=== PATIENT | female | born 1985 | race Caucasian/White ===

== ENCOUNTER 2016-11-11 12:00 | Outpatient (RCR) | payer MEDICAID, SELFPAY | END 2016-11-18 | disposition home or self-care (01) | LOC: M OUTALCOH 12:00 | PROVIDERS: ATTEND Psychiatry & Neurology Psychiatry | DX: F14.20 Cocaine dependence, uncomplicated (principal) ==

== ENCOUNTER → 2016-11-14 | Outpatient (REF) | payer MEDICAID | END | disposition home or self-care (01) | LOC: M SFHCWAGY 12:11 | PROVIDERS: ATTEND Nurse Practitioner Family | DX: Z12.4 Encounter for screening for malignant neoplasm of cervix (principal) ==

== ENCOUNTER → 2016-11-25 | Outpatient (REF) | payer OTHER ==
[2016-11-25 12:17] LABS: MEAN CORPUSCULAR HEMOGLOBIN 29.4 pg (27.0-33.0); MEAN CORPUSCULAR HGB CONC 33.7 g/dl (32.0-36.5); MEAN CORPUSCULAR VOLUME 87.2 fl (80.0-96.0); RED CELL DISTRIBUTION WIDTH 13.3 % (11.5-14.5); WHITE BLOOD COUNT 7.5 K/mm3 (4.0-10.0)
[2016-11-25 12:37] LABS: ALBUMIN 3.4 GM/DL (3.2-5.2); ALBUMIN/GLOBULIN RATIO 0.83 (1.00-1.93); ALKALINE PHOSPHATASE 101 U/L (45-117); ALT/SGPT 37 U/L (12-78); ANION GAP 12 MEQ/L (8-16); AST/SGOT 15 U/L (15-37); BILIRUBIN,TOTAL 0.3 MG/DL (0.2-1.0); BLOOD UREA NITROGEN 12 MG/DL (7-18); CALCIUM LEVEL 8.6 MG/DL (8.5-10.1); CARBON DIOXIDE LEVEL 25 MEQ/L (21-32); CHLORIDE LEVEL 104 MEQ/L (98-107); CHOLESTEROL LEVEL 202 MG/DL (<200); CREATININE FOR GFR 0.58 MG/DL (0.55-1.02); GLOMERULAR FILTRATION RATE > 60.0 (>60); GLUCOSE, FASTING 96 MG/DL (70-105); POTASSIUM SERUM 4.3 MEQ/L (3.5-5.1); SODIUM LEVEL 141 MEQ/L (136-145); TOTAL PROTEIN 7.5 GM/DL (6.4-8.2); TRIGLYCERIDES LEVEL 122 MG/DL (<150)
== END | disposition home or self-care (01) ==
LOC: M SFHCPLAZ 08:43
DX: R53.83 Other fatigue (principal); E28.2 Polycystic ovarian syndrome; E78.5 Hyperlipidemia, unspecified; E55.9 Vitamin D deficiency, unspecified

== ENCOUNTER → 2016-12-16 | Outpatient (RCR) | payer MEDICAID | LOC: M OUTALCOH 11-21 13:40 | PROVIDERS: ATTEND Psychiatry & Neurology Psychiatry | DX: F14.20 Cocaine dependence, uncomplicated (principal) ==

== ENCOUNTER → 2017-02-25 | Outpatient (CLI) | payer MEDICAID | LOC: M OUTALCOH 12:41 | PROVIDERS: ATTEND Psychiatry & Neurology Psychiatry | DX: F14.20 Cocaine dependence, uncomplicated (principal) ==

== ENCOUNTER 2017-03-30 07:38 | Emergency (ER) | payer MEDICAID, OTHER ==
[~2017-03-30] VITALS: Ht 170.2 cm; Wt 113.4 kg
[2017-03-30] MEDS ORDERED: OMEP20CA3 PO (07:54)
[2017-03-30] MEDS ORDERED: ALEV220T26 PO (07:54)
[2017-03-30] MEDS ORDERED: METF1000 PO (07:54)
[2017-03-30] MEDS ORDERED: FLUO20CA9 PO (07:54)
[2017-03-30] MEDS ORDERED: NORCO, ANEXSIA 5/325MG TABLET (HYDROcodone/ACETAMINOPHEN) PO ONE (08:15)
[2017-03-30 08:53] VITALS: BP 160/100
[2017-03-30] MEDS ORDERED: AUGM875T27 PO (09:03)
[2017-03-30] MEDS ORDERED: IBUP600T26 PO (09:04)
[2017-03-30] MEDS ORDERED: NORCOTAB PO (09:04)
== END 2017-03-30 09:12 | disposition home or self-care (01) ==
LOC: M ED 08:21
DX: K02.9 Dental caries, unspecified (principal); R03.0 Elevated blood-pressure reading, without diagnosis of hypertension; F41.9 Anxiety disorder, unspecified; F32.9 Major depressive disorder, single episode, unspecified; F17.200 Nicotine dependence, unspecified, uncomplicated; Z79.899 Other long term (current) drug therapy

== ENCOUNTER 2017-06-02 13:29 | Emergency (ER) | payer OTHER ==
[~2017-06-02] VITALS: Ht 170.2 cm; Wt 113.6 kg
[~2017-06-02 13:29] MED LIST: ALEV220T26 PO; AUGM875T28 PO; FLUO20CA19 PO; IBUP-1022 PO; METF10004 PO; NORCOTAB PO; OMEP20CA3 PO
[2017-06-02] MEDS ORDERED: ZANT300T PO (14:33)
[2017-06-02] MEDS ORDERED: IBUP-1022 PO (14:33)
[2017-06-02] MEDS ORDERED: AUGM875T28 PO (14:33)
[2017-06-02 14:46] VITALS: BP 155/96
== END 2017-06-02 14:47 | disposition home or self-care (01) ==
LOC: M ED 13:29
DX: H66.41 Suppurative otitis media, unspecified, right ear (principal); F17.210 Nicotine dependence, cigarettes, uncomplicated

== ENCOUNTER → 2017-06-10 | Outpatient (CLI) | payer MEDICAID ==
[~2017-06-10] MED LIST changes: +ZANT300T PO
== END ==
LOC: M OUTALCOH 12:52
PROVIDERS: ATTEND Psychiatry & Neurology Psychiatry
DX: Z13.9 Encounter for screening, unspecified (principal); F14.20 Cocaine dependence, uncomplicated

== ENCOUNTER 2017-07-15 08:45 | Outpatient (RCR) | payer MEDICAID | END 2017-07-18 | LOC: M OUTALCOH 08:45 | PROVIDERS: ATTEND Psychiatry & Neurology Psychiatry | DX: F10.20 Alcohol dependence, uncomplicated (principal); F14.20 Cocaine dependence, uncomplicated ==

== ENCOUNTER 2017-12-12 10:56 | Emergency (ER) | payer OTHER, MEDICAID | END 2017-12-12 11:51 | disposition home or self-care (01) | LOC: M ED 10:56 | DX: H66.001 Acute suppurative otitis media without spontaneous rupture of ear drum, right ear (principal); R05 Cough; K21.9 Gastro-esophageal reflux disease without esophagitis; F41.9 Anxiety disorder, unspecified; F32.9 Major depressive disorder, single episode, unspecified; E28.2 Polycystic ovarian syndrome; F17.200 Nicotine dependence, unspecified, uncomplicated | CPT/HCPCS: 99283 ==

== ENCOUNTER → 2017-12-31 | Outpatient (REF) | payer OTHER ==
[2017-12-31 14:33] LABS: INFLUENZA A AMPLIFICATION NEGATIVE (NEGATIVE); INFLUENZA B AMPLIFICATION NEGATIVE (NEGATIVE)
== END ==
LOC: M LAB REF 13:01
DX: J11.1 Influenza due to unidentified influenza virus with other respiratory manifestations (principal)

== ENCOUNTER 2018-02-13 11:59 | Emergency (ER) | payer OTHER | END 2018-02-13 12:56 | disposition home or self-care (01) | LOC: M ED 11:59 | DX: H66.001 Acute suppurative otitis media without spontaneous rupture of ear drum, right ear (principal) | CPT/HCPCS: 99282 ==

== ENCOUNTER → 2018-07-05 | Outpatient (REF) | payer OTHER ==
[2018-07-05 17:47] LABS: ESTIMATED AVERAGE GLUCOSE 108 MG/DL (60-110); HEMOGLOBIN A1c 5.4 %
[2018-07-05 18:31] LABS: TOTAL 25(OH) VITAMIN D 21.2 NG/ML (30.0-100.0)
== END ==
LOC: M SFHCPLAZ 15:31
DX: Z13.1 Encounter for screening for diabetes mellitus (principal); Z13.21 Encounter for screening for nutritional disorder

== ENCOUNTER → 2019-12-08 | Outpatient (REF) | payer OTHER ==
[~2019-12-08] MED LIST changes: +BENZ200C70 PO; -FLUO20CA19 PO; +FLUO20CA22 PO; +HYDR-3715 PO; +LISI10TA4; -NORCOTAB PO; +OMEP-221; +OMEP1CAP73 PO; -OMEP20CA3 PO; +PERC5TAB12 PO; -ZANT300T PO; +ZANT300T9 PO
[2019-12-08 22:41] LABS: INFLUENZA A AMPLIFICATION NEGATIVE (NEGATIVE); INFLUENZA B AMPLIFICATION NEGATIVE (NEGATIVE)
== END ==
LOC: M LAB REF 21:37
PROVIDERS: ATTEND Physician Assistant
DX: J11.1 Influenza due to unidentified influenza virus with other respiratory manifestations (principal)

== ENCOUNTER 2020-01-10 08:05 | Day surgery (SDC) | payer OTHER ==
[~2020-01-10] VITALS: Ht 170.2 cm; Wt 128.4 kg
[~2020-01-10 08:05] MED LIST changes: +IBUP200C27 PO; +LIDOCAINE 2% INJ 100 MG/5 ML SDV (FOR ANES.) As Ordered ONE; -LISI10TA4; +LISI10TA4 PO; -OMEP-221; +OMEP-221 PO; +propofoL 200 MG/20 ML VIAL As Ordered ONE
[2020-01-10] MEDS ORDERED: fentaNYL 100 MCG/2 ML INJECTION (J3010) As Ordered ONE (09:27)
[2020-01-10] MEDS ORDERED: propofoL 200 MG/20 ML VIAL As Ordered ONE (09:27)
--- NOTE | 2020-01-10 10:14 | ROOR ---
Patient Name: Loretta Jaramillo Procedure Date: 01/10/2020 9:08 AM Date of : 1985 Age: 34 Room: [facility] Gender: Female Note Status: Finalized Procedure: Upper GI endoscopy Indications: Suspected gastro-esophageal reflux disease Providers: Oscar Polk MD Referring MD: Nabil VAZQUEZ MD Requesting Provider: Medicines: Monitored Anesthesia Care Complications: No immediate complications. Procedure: Pre-Anesthesia Assessment: - Prior to the procedure, a History and Physical was performed, and patient medications and allergies were reviewed. The patient is competent. The risks and benefits of the procedure and the sedation options and risks were discussed with the patient. All questions were answered and informed consent was obtained. Patient identification and proposed procedure were verified by the physician, the nurse and the anesthesiologist in the procedure room. Mental Status Examination: alert and oriented. Airway Examination: normal oropharyngeal airway and neck mobility. Respiratory Examination: clear to auscultation. CV Examination: normal. Prophylactic Antibiotics: The patient does not require prophylactic antibiotics. Prior Anticoagulants: The patient has taken no previous anticoagulant or antiplatelet agents. ASA Grade Assessment: II - A patient with mild systemic disease. After reviewing the risks and benefits, the patient was deemed in satisfactory condition to undergo the procedure. The anesthesia plan was to use monitored anesthesia care (MAC). Immediately prior to administration of medications, the patient was re-assessed for adequacy to receive sedatives. The heart rate, respiratory rate, oxygen saturations, blood pressure, adequacy of pulmonary ventilation, and response to care were monitored throughout the procedure. The physical status of the patient was re-assessed after the procedure. The Endoscope was introduced through the mouth, and advanced to the second part of duodenum. The upper GI endoscopy was accomplished without difficulty. The patient tolerated the procedure well. Findings: LA Grade A (one or more mucosal breaks less than 5 mm, not extending between tops of 2 mucosal folds) esophagitis with no bleeding was found in the distal esophagus. Biopsies were taken with a cold forceps for histology. Verification of patient identification for the specimen was done by the physician and nurse using the patient's name, date and medical record number. Estimated blood loss was minimal. Scattered moderate inflammation characterized by erythema, friability and granularity was found in the gastric body and in the gastric antrum. Biopsies were taken with a cold forceps for Helicobacter pylori testing. The duodenal bulb and second portion of the duodenum were normal. Impression: - LA Grade A reflux esophagitis. Rule out Ruiz's esophagus. Biopsied. - Gastritis. Biopsied. - Normal duodenal bulb and second portion of the duodenum. Recommendation: - Patient has a contact number available for emergencies. The signs and symptoms of potential delayed complications were discussed with the patient. Return to normal activities tomorrow. Written discharge instructions were provided to the patient. - Resume previous diet. - Continue present medications. - Follow an antireflux regimen. - Await pathology results. - Telephone GI clinic for pathology results in 2 weeks. - Return to primary care physician. Oscar Polk MD Oscar Polk MD 01/10/2020 10:14:37 AM Electronically signed by Oscar Polk MD Number of Addenda: 0 Note Initiated On: 01/10/2020 9:08 AM Estimated Blood Loss: Estimated blood loss was minimal.
[2020-01-10 10:15] VITALS: BP 125/86
[2020-01-12] MEDS ORDERED: NS 1,000 ML IV ONE (06:00)
== END 2020-01-10 10:40 | disposition home or self-care (01) ==
LOC: M OPP 08:05
PROVIDERS: ATTEND Internal Medicine Gastroenterology
DX: K21.0 Gastro-esophageal reflux disease with esophagitis (principal); K29.70 Gastritis, unspecified, without bleeding; I10 Essential (primary) hypertension; E78.5 Hyperlipidemia, unspecified; R06.02 Shortness of breath; F32.9 Major depressive disorder, single episode, unspecified; F41.9 Anxiety disorder, unspecified; F17.210 Nicotine dependence, cigarettes, uncomplicated; Z79.899 Other long term (current) drug therapy
CPT/HCPCS: 43239; 88305; J3010

== ENCOUNTER 2020-07-24 00:23 | Emergency (ER) | payer OTHER ==
[~2020-07-24] VITALS: Ht 170.2 cm; Wt 133.9 kg
[~2020-07-24 00:23] MED LIST changes: -LIDOCAINE 2% INJ 100 MG/5 ML SDV (FOR ANES.) As Ordered ONE; -propofoL 200 MG/20 ML VIAL As Ordered ONE
[2020-07-24 01:15] LABS: BASO # 0.1 10^3/uL (0.0-0.2); BASO % 0.6 % (0.0-1.0); EOS # 0.5 10^3/uL (0.0-0.5); EOS % 4.2 % (0.0-3.0); HEMOGLOBIN 13.8 g/dl (12.0-15.5); LYMPH # 3.7 10^3/uL (1.5-5.0); LYMPH % 32.4 % (24.0-44.0); MEAN CORPUSCULAR HEMOGLOBIN 28.8 pg (27.0-33.0); MEAN CORPUSCULAR HGB CONC 32.1 g/dl (32.0-36.5); MEAN CORPUSCULAR VOLUME 89.6 fl (80.0-96.0); MONO # 0.9 10^3/uL (0.0-0.8); MONO % 7.6 % (0.0-5.0); NEUTROPHILS # 6.3 10^3/uL (1.5-8.5); NEUTROPHILS % 54.9 % (36.0-66.0); PLATELET COUNT, AUTOMATED 304 10^3/uL (150-450); WHITE BLOOD COUNT 11.5 10^3/uL (4.0-10.0)
[2020-07-24 01:50] LABS: HCG, SERUM QUALITATIVE NEGATIVE (NEGATIVE)
[2020-07-24 01:57] LABS: ALBUMIN 3.1 GM/DL (3.2-5.2); ALT/SGPT 97 U/L (12-78); BILIRUBIN,DIRECT < 0.1 MG/DL (0.0-0.2); BILIRUBIN,TOTAL 0.2 MG/DL (0.2-1.0); BLOOD UREA NITROGEN 13 MG/DL (7-18); CALCIUM LEVEL 9.2 MG/DL (8.5-10.1); CARBON DIOXIDE LEVEL 28 MEQ/L (21-32); CHLORIDE LEVEL 107 MEQ/L (98-107); CREATININE FOR GFR 0.63 MG/DL (0.55-1.30); GLOMERULAR FILTRATION RATE > 60.0 (>60); GLUCOSE, FASTING 229 MG/DL (70-100); LIPASE 146 U/L (73-393); POTASSIUM SERUM 4.3 MEQ/L (3.5-5.1); SODIUM LEVEL 139 MEQ/L (136-145); TOTAL PROTEIN 7.4 GM/DL (6.4-8.2)
[2020-07-24] MEDS ORDERED: KETOROLAC 30 MG/ML 1ML VIAL IV ONE (03:15)
[2020-07-24] MEDS ORDERED: ONDANSETRON 4MG/2ML VIAL IV ONE (03:15)
[2020-07-24] MEDS ORDERED: NS 1,000 ML IV ONE (03:15)
[2020-07-24] MEDS ORDERED: GI COCKTAIL 50ML BTL(HYOSCYAMINE/MAALOX/LIDOCAINE VISCOUS)(1:3:1) PO ONE (03:15)
--- NOTE | 2020-07-24 04:04 | REPVR ---
PROCEDURE INFORMATION: Exam: US Abdomen, Limited; Right Upper Quadrant Exam date and time: 07/24/20 (3:27am) Age: 34 years old Clinical indication: Acute abdominal pain. RUQ pain. TECHNIQUE: Imaging protocol: US abdomen. Real time ultrasound with image documentation. Limited examination focused on the right upper quadrant. COMPARISON: US GALLBLADDER of 10/26/19 FINDINGS: The liver is visually normal in size, with fatty infiltration (echogenic texture). Partially contracted gallbladder, containing sludge. Thin gallbladder wall (2.1 mm thickness). No pericholecystic fluid is appreciated. The CBD is not dilated (4 mm diameter). The pancreas is obscured by bowel gas. The right kidney measures 12.4 cm in length, with no hydronephrosis appreciated. No ascites is seen. IMPRESSION: No acute pathology. No evidence of acute cholecystitis. The gallbladder is partially contracted. Gallbladder sludge is present. Thin gallbladder wall. No biliary obstruction. Electronically signed by: Sonia Alvarez On 07/24/2020 04:03:42 AM
[2020-07-24] MEDS ORDERED: LEVS0.124 SL (05:00)
[2020-07-24 05:51] VITALS: BP 169/98
== END 2020-07-24 05:53 | disposition home or self-care (01) ==
LOC: M ED 00:23
DX: K80.50 Calculus of bile duct without cholangitis or cholecystitis without obstruction (principal); R11.2 Nausea with vomiting, unspecified; Z87.19 Personal history of other diseases of the digestive system; F17.290 Nicotine dependence, other tobacco product, uncomplicated; Z79.899 Other long term (current) drug therapy
CPT/HCPCS: 76705; 80048; 80076; 81001; 83690; 84703; 85025; 96361; 96374; 96375; 99284; J1885; J2405

== ENCOUNTER → 2020-08-08 | Outpatient (CLI) | payer OTHER ==
[~2020-08-08] MED LIST changes: +LEVS0.124 SL
--- NOTE | 2020-08-08 14:30 | REPPI ---
INDICATION: M25.552 PAIN IN LEFT HIP COMPARISON: None. TECHNIQUE: AP and frog-lateral views of the left hip FINDINGS: Mild/early moderate arthritic changes include subtle increased sclerosis to the acetabulum with minimal joint space narrowing and marginal acetabular spurring. No further overt osteoarthritic changes are appreciated. No evidence for acute or healed injury. Surrounding soft tissues are normal. IMPRESSION: Mild arthritic degenerative changes. <Electronically signed by José Miguel Gr > 08/08/20 [id number]
== END ==
LOC: M PLAIMG 14:08
PROVIDERS: ATTEND Physician Assistant
DX: M16.12 Unilateral primary osteoarthritis, left hip (principal); M25.752 Osteophyte, left hip

== ENCOUNTER → 2020-08-23 | Outpatient (REF) | payer OTHER ==
[2020-08-23 17:29] LABS: BASO # 0.1 10^3/uL (0.0-0.2); BASO % 0.9 % (0.0-1.0); EOS # 0.3 10^3/uL (0.0-0.5); EOS % 3.2 % (0.0-3.0); HEMATOCRIT 47.2 % (36.0-47.0); HEMOGLOBIN 14.7 g/dl (12.0-15.5); LYMPH # 3.7 10^3/uL (1.5-5.0); LYMPH % 37.8 % (24.0-44.0); MEAN CORPUSCULAR HEMOGLOBIN 28.3 pg (27.0-33.0); MEAN CORPUSCULAR HGB CONC 31.1 g/dl (32.0-36.5); MEAN CORPUSCULAR VOLUME 90.9 fl (80.0-96.0); MONO # 0.8 10^3/uL (0.0-0.8); MONO % 8.1 % (0.0-5.0); NEUTROPHILS # 4.9 10^3/uL (1.5-8.5); NEUTROPHILS % 49.7 % (36.0-66.0); PLATELET COUNT, AUTOMATED 339 10^3/uL (150-450); RED BLOOD COUNT 5.19 10^6/uL (4.00-5.40); WHITE BLOOD COUNT 9.8 10^3/uL (4.0-10.0)
[2020-08-23 17:44] LABS: ALBUMIN 3.2 GM/DL (3.2-5.2); ALT/SGPT 61 U/L (12-78); BILIRUBIN,TOTAL 0.2 MG/DL (0.2-1.0); BLOOD UREA NITROGEN 14 MG/DL (7-18); CALCIUM LEVEL 9.5 MG/DL (8.5-10.1); CARBON DIOXIDE LEVEL 25 MEQ/L (21-32); CHLORIDE LEVEL 102 MEQ/L (98-107); CHOLESTEROL LEVEL 209 MG/DL (<200); CREATININE FOR GFR 0.66 MG/DL (0.55-1.30); GLOMERULAR FILTRATION RATE > 60.0 (>60); GLUCOSE, FASTING 146 MG/DL (70-100); HDL CHOLESTEROL 43 MG/DL (>40); LDL CHOLESTEROL 123 MG/DL (<100); NON-HDL-C 166 MG/DL; POTASSIUM SERUM 4.5 MEQ/L (3.5-5.1); SODIUM LEVEL 136 MEQ/L (136-145); TOTAL PROTEIN 7.6 GM/DL (6.4-8.2); TRIGLYCERIDES LEVEL 215 MG/DL (<150)
[2020-08-23 17:49] LABS: HEMOGLOBIN A1c 6.4 %
== END ==
LOC: M LAB REF 16:25
PROVIDERS: ATTEND Physician Assistant
DX: E28.2 Polycystic ovarian syndrome (principal); I10 Essential (primary) hypertension

== ENCOUNTER 2021-04-30 12:46 | Inpatient (IN) | payer OTHER ==
[~2021-04-30] VITALS: Ht 167.6 cm; Wt 135.1 kg
[~2021-04-30 12:46] MED LIST changes: -BP MED UNKNOWN; -CIPR-249 PO; -D31000TA2 PO; -FLAG500T PO; -IBUP-1720 PO; -LISI20TA33 PO; -MELO15TA28; -METF500T13; -MULTCHW12 PO; -NAPR-885; -NAPR500T6 PO; -OMEP-173 PO; +OMEP-221 PO; -OMEP40CA5 PO
[2021-04-30] MEDS ORDERED: NAPR-885 (13:09)
[2021-04-30 15:54] LABS: BASO # 0.1 10^3/uL (0.0-0.2); BASO % 0.6 % (0.0-1.0); EOS # 0.3 10^3/uL (0.0-0.5); EOS % 2.8 % (0.0-3.0); HEMATOCRIT 45.5 % (36.0-47.0); HEMOGLOBIN 14.7 g/dl (12.0-15.5); LYMPH # 2.9 10^3/uL (1.5-5.0); LYMPH % 29.2 % (24.0-44.0); MEAN CORPUSCULAR HEMOGLOBIN 28.7 pg (27.0-33.0); MEAN CORPUSCULAR HGB CONC 32.3 g/dl (32.0-36.5); MEAN CORPUSCULAR VOLUME 88.7 fl (80.0-96.0); MONO % 9.8 % (2.0-8.0); NEUTROPHILS # 5.7 10^3/uL (1.5-8.5); NEUTROPHILS % 57.3 % (36.0-66.0); PLATELET COUNT, AUTOMATED 310 10^3/uL (150-450); RED BLOOD COUNT 5.13 10^6/uL (4.00-5.40); WHITE BLOOD COUNT 9.9 10^3/uL (4.0-10.0)
[2021-04-30 16:41] LABS: ALBUMIN 3.5 GM/DL (3.2-5.2); ALT/SGPT 120 U/L (12-78); BILIRUBIN,DIRECT 0.2 MG/DL (0.0-0.2); BILIRUBIN,TOTAL 0.6 MG/DL (0.2-1.0); BLOOD UREA NITROGEN 15 MG/DL (7-18); CALCIUM LEVEL 9.1 MG/DL (8.5-10.1); CARBON DIOXIDE LEVEL 26 MEQ/L (21-32); CHLORIDE LEVEL 101 MEQ/L (98-107); GLOMERULAR FILTRATION RATE > 60.0 (>60); GLUCOSE, FASTING 84 MG/DL (70-100); LIPASE 100 U/L (73-393); SODIUM LEVEL 136 MEQ/L (136-145); TOTAL PROTEIN 8.3 GM/DL (6.4-8.2)
[2021-04-30] MEDS ORDERED: MORPHINE 4 MG/ML 1ML VIAL/SYRINGE (J2270) IV ONE (17:15)
[2021-04-30] MEDS ORDERED: PANTOPRAZOLE 40MG VIAL (C9113 PER 1) IV ONE (17:15)
--- NOTE | 2021-04-30 17:18 | ECGEPIP ---
[facility] - ED Test Date: 2021-04-30 Pat Name: ELY SAGE Department: Room: - Gender: Female Program Advocate: : 1985 Requested By: VASQUEZ Shepherd Order Number: [id number] Reading MD: Rancho Pathak Measurements Intervals Tyrone Rate: 90 P: 30 OH: 176 QRS: 30 QRSD: 94 T: 12 QT: 382 QTc: 467 Interpretive Statements Normal sinus rhythm POOR R WAVE PROGRESSION NONSPECIFIC T WAVE ABNORMALITY(S) SIMILAR TO 10/26/19 Electronically Signed on 04-30-2021 17:18:42 EDT by Rancho Pathak
[2021-04-30 17:29] LABS: HCG, SERUM QUALITATIVE NEGATIVE (NEGATIVE)
--- NOTE | 2021-04-30 18:47 | REP ---
INDICATION: ruq pain. COMPARISON: None. TECHNIQUE: Transabdominal right upper quadrant sonography. Scan quality is substantially inhibited by patient body habitus and bowel gas. FINDINGS: Scanning through the right upper quadrant of the abdomen demonstrates a normal sized, thin-walled gallbladder without evidence of stone or polyp. Common bile duct is normal measuring 0.4 cm in greatest diameter. No focal liver lesion is seen. Liver size is normal. The pancreas is obscured by abdominal gas. No right renal abnormality is seen. There is no evidence of ascites. The right kidney measures 11.9 x 5.9 x 5.6 cm. IMPRESSION: Negative, somewhat limited right upper quadrant sonography. <Electronically signed by Marcos Albarran > 04/30/21 [id number]
[2021-04-30] MEDS ORDERED: ISOVUE-370 76% 100ML VIAL As Ordered ONE (18:59)
--- NOTE | 2021-04-30 20:33 | REPVR ---
PROCEDURE INFORMATION: Exam: CT Abdomen And Pelvis With Contrast Exam date and time: 04/30/2021 7:02 PM Age: 35 years old Clinical indication: Other: Abd pain; Additional info: Abdominal pain TECHNIQUE: Imaging protocol: Computed tomography of the abdomen and pelvis with contrast. Radiation optimization: All CT scans at this facility use at least one of these dose optimization techniques: automated exposure control; mA and/or kV adjustment per patient size (includes targeted exams where dose is matched to clinical indication); or iterative reconstruction. Contrast material: ISOVUE 370; Contrast volume: 100 ml; Contrast route: INTRAVENOUS (IV); COMPARISON: CT ABD/PEL W/IV CONTRAST ONLY 10/26/2019 11:54 PM FINDINGS: Lungs: The lung bases are unremarkable. Liver: There is a diffuse decrease in hepatic parenchymal density, consistent with fatty infiltration. Gallbladder and bile ducts: The gallbladder is unremarkable. Pancreas: The pancreas is normal. Spleen: The spleen is unremarkable. Adrenal glands: The adrenal glands are unremarkable. Kidneys and ureters: The kidneys are unremarkable. Stomach and bowel: There is no evidence of intestinal obstruction although there is pericolonic inflammation series 201, images 130 -135, mesenteric side of the proximal sigmoid colon. No adjacent abscess is apparent although there could be an abscess within the colonic wall. Diverticulosis is most prominent in the descending and sigmoid colon. Appendix: No evidence of appendicitis. There is a probable clip along the margin of the cecum which may be due to appendectomy. Intraperitoneal space: Unremarkable. No free air. No significant fluid collection. Vasculature: The aorta is unremarkable. Lymph nodes: Unremarkable. No enlarged lymph nodes. Urinary bladder: The bladder is unremarkable. Reproductive: Unremarkable as visualized. Bones/joints: Unremarkable. No acute fracture. Soft tissues: Unremarkable. IMPRESSION: There is pericolonic inflammation proximal sigmoid colon most likely due to acute diverticulitis. No evidence of perforation other than 1 air bubble within the area of inflammation and no adjacent soft tissue abscess however there may be abscess within the colonic wall where there is a 2 cm low dense region series 202, image 50, series 203, image 93. Electronically signed by: Ivette Campos On 04/30/2021 20:33:32 PM
[2021-04-30] MEDS ORDERED: metroNIDAZOLE 500 MG in IV 1 EA IV ONE (21:00)
[2021-04-30] MEDS ORDERED: CIPROFLOXACIN 400 MG in IV 1 EA IV ONE (21:00)
[2021-04-30] MEDS ORDERED: NS 1,000 ML IV SCH (21:15)
[2021-04-30] MEDS ORDERED: OMEP-218 PO (21:21)
[2021-04-30] MEDS ORDERED: MULTCHW12 PO (21:21)
[2021-04-30] MEDS ORDERED: D31000TA2 PO (21:21)
[2021-04-30] MEDS ORDERED: IBUP-1720 PO (21:21)
[2021-04-30] MEDS ORDERED: LISI20TA33 PO (21:21)
[2021-04-30] MEDS ORDERED: NAPR500T6 PO (21:21)
[2021-04-30] MEDS ORDERED: ACETAMINOPHEN TAB 650MG DOSE (2X325MG) PO PRN (21:35)
--- NOTE | 2021-04-30 21:49 | REPVR ---
PROCEDURE INFORMATION: Exam: XR Chest Exam date and time: 04/30/2021 9:36 PM Age: 35 years old Clinical indication: Shortness of breath; Additional info: SOB TECHNIQUE: Imaging protocol: XR of the chest. Views: 2 views. COMPARISON: CR Chest, 2 view PA, Lat 10/26/2019 10:24 PM FINDINGS: Lungs: No focal lung consolidation. Pleural spaces: No pleural effusion or pneumothorax. Heart/Mediastinum: Unremarkable. No cardiomegaly. Diaphragm: There is elevation and/or eventration of the right hemidiaphragm which is a stable finding. Bones/joints: Unremarkable. IMPRESSION: No acute findings. Electronically signed by: Ivette Campos On 04/30/2021 21:48:59 PM
--- NOTE | 2021-04-30 21:52 | HPEPDOC ---
[facility] Medical History & Physical Date of Admission Apr 30, 2021 Date of Service: Apr 30, 2021 Attending Physician: MADLEYN PADILLA MD History and Physical CHIEF COMPLAINT: Abdominal pain, nausea and vomiting HISTORY OF PRESENT ILLNESS: Ms. Jaramillo is a 35-year-old female who presented to the ER this evening with complaints of 2 days of nausea, vomiting and worsening abdominal pain. She has a history of pancreatitis, etiology unclear, and originally thought that the pain might be a recurrence of the pancreatitis. She said it then started to feel different and she wondered if she had some constipation. She had 2 large bowel movements and then has had diarrhea since. She says she has been unable to keep anything down for 2 days. She denies any fever or chills. On initial evaluation. This evening she was noted to have INCREASED of her LFTs with AST of 58 and ALT of 120. Labs were otherwise unremarkable. Ultrasound of the gallbladder was somewhat limited but essentially negative. CT of the abdomen and pelvis showed pericolonic inflammation of the proximal sigmoid colon most likely due to acute diverticulitis. There was no evidence of perforation, but there was one air bubble within the area of inflammation. There is no adjacent soft tissue abscess. However, there might be an abscess within the colonic wall, where there is a 2 cm low dense region. ER provider discussed the case with gastroenterology who recommended that the patient be admitted and continued on Cipro and Flagyl. Commended the patient continue on IV fluids and a clear liquid diet. He stated that if the patient felt better in the morning, it would not be unreasonable for her to discharge home, but to continue clear liquids for 2-3 more days. Asked the general surgery be consult it. Dr. Kay was made aware of the patient's current condition and will evaluate in the morning. He did not feel there was any need for urgent surgical intervention. Patient does have a history of hypertension with blood pressure 160/90. She was afebrile with a pulse of 98. She was satting 98% on room air. PAST MEDICAL HISTORY: 1. Hypertension. 2. Hyperlipidemia. 3. Pancreatitis. 4. Anxiety. 5. Depression PAST SURGICAL HISTORY: 1. EGD. 2. Tonsil and adenoidectomy. 3. Ear surgery SOCIAL HISTORY: Tobacco use: Patient quit smoking about 1 year ago. ETOH: She does drink alcohol occasionally. Illicit drug use: She denies any illegal drugs. FAMILY HISTORY: Patient's mother is 62 years old and has a history of hypertension, anxiety and kidney stones. Her father is 68 with a history of coronary artery disease. REVIEW OF SYSTEMS: Complete 10 point review systems is negative except as noted above PHYSICAL EXAMINATION: Patient is seen in the ER, sitting on the side of the stretcher.. She is alert and oriented x 3. HEENT is WNL. Neck is supple. Lungs are clear to auscultation. Heart regular rate and rhythm without murmur. Abdomen is obese, soft, tender to palpation in the epigastrium with bowel sounds positive. Extremities with good ROM and strength equal bilaterally. No lower extremity edema. Pedal pulses are positive. Skin is warm and dry with no obvious rash or lesion. Neuro: grossly intact. Psych: She is pleasant and cooperative. ASSESSMENT AND PLAN: 1. Acute diverticulitis with possible colonic wall abscess. We'll continue the patient on Flagyl and Cipro. General surgery to evaluate in the morning. We'll continue the patient on clear liquid diet for the next 2-3 days. Will add antiemetic and pain medication for use as needed. Continue the patient on Protonix. Continue gentle IV fluids. 2. Transaminitis secondary to persistent nausea and vomiting. Plan as outlined above. Recheck labs in the morning. 3. Hypertension. Continue home lisinopril and monitor with routine vital signs. Will adjust medications as needed based on trends. 4. DVT prophylaxis. Lovenox. CODE STATUS: CODE STATUS was discussed with the patient desires to be considered full code. She states her cousin, Ade, would act as her surrogate if she were unable to make her own decisions. Patient is considered high risk for further deterioration including possible sepsis or septic shock. She is admitted for close observation and further evaluation and expected to remain at least one midnight. Vital Signs Vital Signs Date Time Temp Pulse Resp B/P (MAP) Pulse Ox O2 Delivery O2 Flow Rate FiO2 04/30/21 18:42 18 99 04/30/21 17:20 04/30/21 12:47 96.7 98 Room Air Laboratory Data Labs 24H Laboratory Tests 2 04/30/21 15:42: Immature Granulocyte % (Auto) 0.3, Neutrophils (%) (Auto) 57.3, Lymphocytes (%) (Auto) 29.2, Monocytes (%) (Auto) 9.8H, Eosinophils (%) (Auto) 2.8, Basophils (%) (Auto) 0.6, Neutrophils # (Auto) 5.7, Lymphocytes # (Auto) 2.9, Monocytes # (Auto) 1.0H, Eosinophils # (Auto) 0.3, Basophils # (Auto) 0.1, Nucleated Red Blood Cells % (auto) 0.0, Anion Gap 9, Glomerular Filtration Rate > 60.0, Calcium Level 9.1, Total Bilirubin 0.6, Direct Bilirubin 0.2, Aspartate Amino Transf (AST/SGOT) 58H, Alanine Aminotransferase (ALT/SGPT) 120H, Alkaline Phosphatase 106, Total Protein 8.3H, Albumin 3.5, Albumin/Globulin Ratio 0.7L, Lipase 100, Human Chorionic Gonadotropin, Qual NEGATIVE CBC/BMP Laboratory Tests 04/30/21 15:42 Home Medications Scheduled Cholecalciferol (Vitamin D3) (Vitamin D3) 1,000 Unit Tablet, 1,000 UNITS PO DAILY Folic Acid/Multivit-Min/Lutein (Multi-Vitamin Gummies) 1 Each Tab.chew, 2 CHW PO DAILY Lisinopril (Lisinopril) 20 Mg Tablet, 20 MG PO DAILY Naproxen (Naproxen) 500 Mg Tablet.dr, 500 MG PO BID Omeprazole (Omeprazole) 20 Mg Capsule.dr, 20 MG PO DAILY Scheduled PRN Ibuprofen (Ibuprofen) 200 Mg Tablet, 800 MG PO TID PRN for PAIN LEVEL 1-5 Allergies Coded Allergies: No Known Allergies (Unverified , 12/29/19) A-FIB/CHADSVASC A-FIB History Current/History of A-Fib/PAF?: No CATINA HAWKINS Apr 30, 2021 21:52
[2021-04-30] MEDS: NS 1,000 ML IV SCH (23:13)
[2021-04-30] MEDS: MORPHINE 4 MG/ML 1ML VIAL/SYRINGE (J2270) IV PRN (23:23)
[2021-05-01] MEDS: NS 1,000 ML IV SCH ×2 (05:35→14:32)
[2021-05-01] MEDS: metroNIDAZOLE 500 MG in IV 1 EA IV SCH ×3 (05:45→21:20)
[2021-05-01] MEDS: MORPHINE 4 MG/ML 1ML VIAL/SYRINGE (J2270) IV PRN ×2 (05:47→14:33)
[2021-05-01] MEDS: ONDANSETRON 4MG/2ML VIAL IV PRN ×2 (05:48→16:57)
[2021-05-01 06:50] LABS: HEMATOCRIT 40.7 % (36.0-47.0); HEMOGLOBIN 13.3 g/dl (12.0-15.5); MEAN CORPUSCULAR HEMOGLOBIN 29.1 pg (27.0-33.0); MEAN CORPUSCULAR HGB CONC 32.7 g/dl (32.0-36.5); MEAN CORPUSCULAR VOLUME 89.1 fl (80.0-96.0); PLATELET COUNT, AUTOMATED 265 10^3/uL (150-450); RED BLOOD COUNT 4.57 10^6/uL (4.00-5.40); WHITE BLOOD COUNT 9.6 10^3/uL (4.0-10.0)
[2021-05-01 07:24] LABS: ALBUMIN 3.1 GM/DL (3.2-5.2); ALT/SGPT 92 U/L (12-78); BILIRUBIN,TOTAL 0.6 MG/DL (0.2-1.0); BLOOD UREA NITROGEN 13 MG/DL (7-18); CALCIUM LEVEL 8.1 MG/DL (8.5-10.1); CARBON DIOXIDE LEVEL 29 MEQ/L (21-32); CHLORIDE LEVEL 99 MEQ/L (98-107); CREATININE FOR GFR 0.59 MG/DL (0.55-1.30); GLOMERULAR FILTRATION RATE > 60.0 (>60); GLUCOSE, FASTING 138 MG/DL (70-100); MAGNESIUM LEVEL 2.2 MG/DL (1.8-2.4); POTASSIUM SERUM 3.9 MEQ/L (3.5-5.1); SODIUM LEVEL 134 MEQ/L (136-145)
[2021-05-01] MEDS ORDERED: CIPROFLOXACIN 400 MG in IV 1 EA IV SCH (09:00)
[2021-05-01] MEDS ORDERED: cefTRIAXone SOD 2 GM in D5W MINI-BAG PLUS 50 ML IV ONE (10:00)
[2021-05-01] MEDS: PANTOPRAZOLE 40MG VIAL (C9113 PER 1) IV SCH ×2 (10:18→21:21)
[2021-05-01] MEDS: ENOXAPARIN 40MG/0.4ML SYRINGE (J1650 PER 10MG) SC SCH (10:22)
[2021-05-01] MEDS ORDERED: METAL LOCK LOOP XX ONE (10:59)
[2021-05-01 11:20] VITALS: BP 154/93
--- NOTE | 2021-05-01 12:43 | CR.PDOC ---
General Date of Consultation: May 01, [address] Lyles HISTORY OF PRESENT ILLNESS: The patient is a 35-year-old female who presented to the emergency department with 2-day history of nausea, vomiting and increasing abdominal pain. She also reported having some constipation, she had a large bowel movement but then had diarrhea following this. In the emergency room the patient had gallbladder ultrasound which was unremarkable. CT abdomen/pelvis indicated acute diverticulitis. General surgery was consulted. ALLERGIES: Please see below. HOME MEDICATIONS: Please see below. PAST MEDICAL HISTORY: Hypertension. Hyperlipidemia. Pancreatitis. Anxiety. Depression BMI 45.9 PAST SURGICAL HISTORY: 1. EGD. 2. Tonsil and adenoidectomy. 3. Ear surgery SOCIAL HISTORY: Former smoker REVIEW OF SYSTEMS: As noted in HPI otherwise 10 point review of systems unremarkable. PHYSICAL EXAMINATION: VITAL SIGNS: Please see below. GENERAL APPEARANCE: Resting on stretcher in emergency department, no acute distress HEENT: MMM RESPIRATORY: CTA CARDIOVASCULAR: RRR. ABDOMEN: Soft, mildly distended, tenderness across the lower abdomen in the right and lower quadrants. No guarding or rebound. Some grimacing with move ment. EXTREMITIES: No edema LABORATORY DATA: WBC 9.6 Hemoglobin 13.3 AST/ALT decreased Imaging Gallbladder ultrasound IMPRESSION: Negative, somewhat limited right upper quadrant sonography. CT abdomen/pelvis IMPRESSION: There is pericolonic inflammation proximal sigmoid colon most likely due to acute diverticulitis. No evidence of perforation other than 1 air bubble within the area of inflammation and no adjacent soft tissue abscess however there may be abscess within the colonic wall where there is a 2 cm low dense region series 202, image 50, series 203, image 93. Electronically signed by: Ivette Campos On 04/30/2021 20:33:32 PM ASSESSMENT/PLAN: Acute diverticulitis The patient is reviewed and examined as per Dr. Lyles this morning, imaging reviewed as per Dr. Lyles, no indication for any surgical intervention at this time. Imaging appeared to have inflammation however no definite perforation or abscess. Continue n.p.o./sips IV fluids 125 cc/h Continue IV Cipro/Flagyl Continue Zofran as needed Will also give 1 dose of Rocephin 2 g IV. Continue to monitor. Vital Signs/I&O Vital Signs Date Time Temp Pulse Resp B/P (MAP) Pulse Ox O2 Delivery O2 Flow Rate FiO2 05/01/21 10:55 97.8 83 16 131/74 (93) 98 Room Air I&O- Last 24 Hours up to 6 AM 05/01/21 05:59 Intake Total 300 ml Balance 300 ml Laboratory Data Labs 24H Laboratory Tests 2 04/30/21 15:42: Immature Granulocyte % (Auto) 0.3, Neutrophils (%) (Auto) 57.3, Lymphocytes (%) (Auto) 29.2, Monocytes (%) (Auto) 9.8H, Eosinophils (%) (Auto) 2.8, Basophils (%) (Auto) 0.6, Neutrophils # (Auto) 5.7, Lymphocytes # (Auto) 2.9, Monocytes # (Auto) 1.0H, Eosinophils # (Auto) 0.3, Basophils # (Auto) 0.1, Nucleated Red Blood Cells % (auto) 0.0, Anion Gap 9, Glomerular Filtration Rate > 60.0, Calcium Level 9.1, Total Bilirubin 0.6, Direct Bilirubin 0.2, Aspartate Amino Transf (AST/SGOT) 58H, Alanine Aminotransferase (ALT/SGPT) 120H, Alkaline Phosphatase 106, Total Protein 8.3H, Albumin 3.5, Albumin/Globulin Ratio 0.7L, Lipase 100, Human Chorionic Gonadotropin, Qual NEGATIVE 05/01/21 06:39: Nucleated Red Blood Cells % (auto) 0.0, Anion Gap 6L, Glomerular Filtration Rate > 60.0, Calcium Level 8.1L, Total Bilirubin 0.6, Aspartate Amino Transf (AST/SGOT) 42H, Alanine Aminotransferase (ALT/SGPT) 92H, Alkaline Phosphatase 88, Total Protein 7.0, Albumin 3.1L, Albumin/Globulin Ratio 0.8L, Magnesium Level 2.2 CBC/BMP Laboratory Tests 04/30/21 15:42 05/01/21 06:39 Microbiology Microbiology 04/30/21 Respiratory Virus Panel (PCR) ([facility]RE[facility]) - Final, Complete Allergies Coded Allergies: No Known Allergies (Unverified , 12/29/19) Home Medications Scheduled Cholecalciferol (Vitamin D3) (Vitamin D3) 1,000 Unit Tablet, 1,000 UNITS PO DAILY, (Reported) Folic Acid/Multivit-Min/Lutein (Multi-Vitamin Gummies) 1 Each Tab.chew, 2 CHW PO DAILY, (Reported) Lisinopril (Lisinopril) 20 Mg Tablet, 20 MG PO DAILY, (Reported) Naproxen (Naproxen) 500 Mg Tablet.dr, 500 MG PO BID, (Reported) Omeprazole (Omeprazole) 20 Mg Capsule.dr, 20 MG PO DAILY, (Reported) Scheduled PRN Ibuprofen (Ibuprofen) 200 Mg Tablet, 800 MG PO TID PRN for PAIN LEVEL 1-5, (R eported) Andreia Juarez May 01, 2021 12:43
[2021-05-01] MEDS ORDERED: CIPR-249 PO (14:25)
[2021-05-01] MEDS ORDERED: FLAG500T PO (14:25)
[2021-05-01] MEDS: ULTRACET TAB PO SCH ×2 (16:54→21:22)
--- NOTE | 2021-05-01 17:41 | IPNPDOC ---
Subjective Date Seen The patient was seen on 05/01/21. Subjective Chief Complaint/HPI No fever or chills, no further diarrhea, continues to have mild abdominal pain but better than yesterday. Objective Physical Examination General Exam: Positive: Alert, Cooperative, No Acute Distress Eye Exam: Positive: PERRLA, Conjunctiva & lids normal, EOMI; Negative: Sclera icteric ENT Exam: Positive: Atraumatic, Mucous membr. moist/pink, Pharynx Normal Neck Exam: Positive: Supple; Negative: JVD, thyromegaly Chest Exam: Positive: Clear to auscultation, Normal air movement Heart Exam: Positive: Rate Normal, Regular Rhythm, Normal S1, Normal S2; Negative: Murmurs, Rubs Abdomen Exam: Positive: Normal bowel sounds, Soft, Tenderness Extremity Exam: Positive: Normal pulses; Negative: Clubbing, Cyanosis, Edema Neuro Exam: Positive: Normal Gait, Normal Speech, Strength at 5/5 X4 ext Psych Exam: Positive: Memory Intact, Oriented x 3 Assessment /Plan Assessment Ms. Jaramillo is a 35-year-old female with past medical history of pancreatitis, HTN, hyperlipidemia , anxiety, depression who presented to the ER this evening with complaints of 2 days of nausea, vomiting and worsening abdominal pain and constipation followed by diarrhea. She originally thought that the pain might be a recurrence of the pancreatitis. She reported she has been unable to keep anything down for [address] of the abdomen and pelvis showed pericolonic inflammation of the proximal sigmoid colon most likely due to acute diverticulitis. There was no evidence of perforation, but there was one air bubble within the area of inflammation. There is no adjacent soft tissue absces s. However, there might be an abscess within the colonic wall, where there is a 2 cm low dense region. ER provider discussed the case with gastroenterology who recommended that the patient be admitted and continued on Cipro and Flagyl. Commended the patient continue on IV fluids and a clear liquid diet. He stated that if the patient felt better in the morning, it would not be unreasonable for her to discharge home, but to continue clear liquids for 2-3 more days. Asked the general surgery be consult it. Dr. Zaragoza was made aware of the patient's current condition and will evaluate in the morning. He did not feel there was any need for urgent surgical intervention. Acute diverticulitis with possible colonic wall abscess. continue the patient on Flagyl and ceftriaxone. We'll continue the patient on liquid diet for the next 2-3 days. Will add antiemetic and pain medication for use as needed. Continue the patient on Protonix. Continue gentle IV fluids. Surgical consult appreciated Pain control with Ultram Transaminitis secondary to persistent nausea and vomiting. Plan as outlined ab valentin. Recheck labs in the morning. Hypertension. Continue home lisinopril Plan/VTE VTE Prophylaxis Ordered?: Yes VS, I&O, 24H, Fishbone Vital Signs/I&O Vital Signs Date Time Temp Pulse Resp B/P (MAP) Pulse Ox O2 Delivery O2 Flow Rate FiO2 05/01/21 05:57 16 05/01/21 05:50 98.0 98 139/83 (101) 98 Room Air I&O- Last 24 Hours up to 6 AM 05/01/21 06:00 Intake Total 300 ml Balance 300 ml Laboratory Data 24H LABS Laboratory Tests 2 04/30/21 15:42: Immature Granulocyte % (Auto) 0.3, Neutrophils (%) (Auto) 57.3, Lymphocytes (%) (Auto) 29.2, Monocytes (%) (Auto) 9.8H, Eosinophils (%) (Auto) 2.8, Basophils (%) (Auto) 0.6, Neutrophils # (Auto) 5.7, Lymphocytes # (Auto) 2.9, Monocytes # (Auto) 1.0H, Eosinophils # (Auto) 0.3, Basophils # (Auto) 0.1, Nucleated Red Blood Cells % (auto) 0.0, Anion Gap 9, Glomerular Filtration Rate > 60.0, Calcium Level 9.1, Total Bilirubin 0.6, Direct Bilirubin 0.2, Aspartate Amino Transf (AST/SGOT) 58H, Alanine Aminotransferase (ALT/SGPT) 120H, Alkaline Phosphatase 106, Total Protein 8.3H, Albumin 3.5, Albumin/Globulin Ratio 0.7L, Lipase 100, Human Chorionic Gonadotropin, Qual NEGATIVE 05/01/21 06:39: Nucleated Red Blood Cells % (auto) 0.0 CBC/BMP Laboratory Tests 04/30/21 15:42 05/01/21 06:39 Microbiology Microbiology 04/30/21 Respiratory Virus Panel (PCR) ([facility]) - Final, Complete GABY SILVEIRA MD May 01, 2021 07:24
[2021-05-01 20:00] VITALS: BP 120/72
[2021-05-01] MEDS ORDERED: cefTRIAXone SOD 2 GM in D5W MINI-BAG PLUS 50 ML IV SCH (23:00)
[2021-05-02] MEDS: NS 1,000 ML IV SCH ×2 (02:27→09:34)
[2021-05-02 04:00] VITALS: BP 119/54
[2021-05-02] MEDS: metroNIDAZOLE 500 MG in IV 1 EA IV SCH ×2 (06:02→14:00)
[2021-05-02 08:00] VITALS: BP 123/67
[2021-05-02] MEDS: ULTRACET TAB PO SCH (09:32)
[2021-05-02] MEDS: PANTOPRAZOLE 40MG VIAL (C9113 PER 1) IV SCH (09:32)
[2021-05-02 09:33] VITALS: BP 123/67
[2021-05-02] MEDS: ENOXAPARIN 40MG/0.4ML SYRINGE (J1650 PER 10MG) SC SCH (09:33)
--- NOTE | 2021-05-02 09:38 | IPNPDOC ---
Text Note Date of Service The patient was seen on 05/02/21. NOTE General surgery Dr. Lyles The patient is a 35-year-old female admitted with diverticulitis. This morning, the patient states her abdominal pain is improved. She denies nausea vomiting. She is tolerating clear liquids. Afebrile. VSS. Resting in bed, no acute distress HEENT: MMM RESPIRATORY: CTA CARDIOVASCULAR: RRR. ABDOMEN: Obese, soft, mildly distended, much less tenderness today, slight tenderness with palpation in the left lower quadrant no guarding or rebound, grimacing. EXTREMITIES: No edema No new labs ASSESSMENT/PLAN: Acute diverticulitis The patient is reviewed and examined as per Dr. Lyles this morning. The patient reports improvement in pain this morning. Tolerating clear liquids. Plan is for discharge today as per hospitalist, would recommend clear liquids for the next 24 to 48-hours. Finish course of oral antibiotics as outpatient. VS,Fishbone, I+O VS, Fishbone, I+O Vital Signs Date Time Temp Pulse Resp B/P (MAP) Pulse Ox O2 Delivery O2 Flow Rate FiO2 05/02/21 09:33 123/67 05/02/21 09:32 18 Room Air 05/02/21 08:00 97.7 85 100 I&O- Last 24 Hours up to 6 AM 05/02/21 06:00 Intake Total 2450 ml Output Total 0 ml Balance 2450 ml Andreia Juarez May 02, 2021 09:38
[2021-05-02] MEDS: ONDANSETRON 4MG/2ML VIAL IV PRN (09:47)
--- NOTE | 2021-05-02 13:11 | DS.PDOC ---
Discharge Summary General Date of Admission May 01, 2021 at 17:39 Date of Discharge May 02, 2021 Discharge Summary PROCEDURES PERFORMED DURING STAY: [None]. DISCHARGE DIAGNOSES: Acute diverticulitis Secondary diagnosis Morbid obesity with BMI of 48.1 Hypertension Hyperlipidemia Depression GERD Fatty liver COMPLICATIONS/CHIEF COMPLAINT: Abd Pain,Diverticulitis,Nausea&Vomiting. HOSPITAL COURSE: Ms. Jaramillo is a 35-year-old female with past medical history of pancreatitis, HTN, hyperlipidemia , anxiety, depression who presented to the ER this evening with complaints of 2 days of nausea, vomiting and worsening abdominal pain and constipation followed by diarrhea. She originally thought that the pain might be a recurrence of the pancreatitis. She reported she has been unable to keep anything down for [address] of the abdomen and pelvis showed pericolonic inflammation of the proximal sigmoid colon most likely due to acute diverticulitis. There was no evidence of perforation, but there was one air bubble within the area of inflammation. There is no adjacent soft tissue abscess. However, there might be an abscess within the colonic wall, where there is a 2 cm low dense region. ER provider discussed the case with gastroenterology who recommended that the patient be admitted and continued on Cipro and Flagyl. Commended the patient continue on IV fluids and a clear liquid diet. He stated that if the patient felt better in the morning, it would not be unreasonable for her to discharge home, but to continue clear liquids for 2-3 more days. Asked the general surgery be consult it. Dr. Lyles was made aware of the patient's current condition and will evaluate in the morning. He did not feel there was any need for urgent surgical intervention. Acute diverticulitis with possible colonic wall abscess. continue the patient on Flagyl and ciprofloxacin. we'll continue the patient on liquid diet for the next 2-3 days. Surgical consult appreciated Pain control with NSAIDs Transaminitis secondary to persistent nausea and vomiting Improve Hypertension. Continue home lisinopril Morbid obesity BMI 48.1 DISCHARGE MEDICATIONS: Please see below. ALLERGIES: Please see below. PHYSICAL EXAMINATION ON DISCHARGE: VITAL SIGNS: Please see below. General Exam: Positive: Alert, Cooperative, No Acute Distress Eye Exam: Positive: PERRLA, Conjunctiva & lids normal, EOMI; Negative: Sclera icteric ENT Exam: Positive: Atraumatic, Mucous membr. moist/pink, Pharynx Normal Neck Exam: Positive: Supple; Negative: JVD, thyromegaly Chest Exam: Positive: Clear to auscultation, Normal air movement Heart Exam: Positive: Rate Normal, Regular Rhythm, Normal S1, Normal S2; Negative: Murmurs, Rubs Abdomen Exam: Positive: Normal bowel sounds, Soft, Tenderness Extremity Exam: Positive: Normal pulses; Negative: Clubbing, Cyanosis, Edema Neuro Exam: Positive: Normal Gait, Normal Speech, Strength at 5/5 X4 ext Psych Exam: Positive: Memory Intact, Oriented x 3 LABORATORY DATA: Please see below. IMAGING: CT abdomen and pelvis with contrast: There is pericolonic inflammation proximal sigmoid colon most likely due to acute diverticulitis. No evidence of perforation other than 1 air bubble within the area of inflammation and no adjacent soft tissue abscess however there may be abscess within the colonic wall where there is a 2 cm low dense region. ACTIVITY: [As tolerated]. DIET: Liquids for 2 days, then low residue diet for a week then normal diet DISCHARGE PLAN: Home DISCHARGE INSTRUCTIONS: Follow with PMD in 1 week DISCHARGE CONDITION: [Stable]. TIME SPENT ON DISCHARGE: 35 minutes. Vital Signs/I&Os Vital Signs Date Time Temp Pulse Resp B/P (MAP) Pulse Ox O2 Delivery O2 Flow Rate FiO2 05/02/21 09:33 123/67 05/02/21 09:32 18 Room Air 05/02/21 08:00 97.7 85 100 I&O- Last 24 Hours up to 6 AM 05/02/21 06:00 Intake Total 2450 ml Output Total 0 ml Balance 2450 ml Microbiology Microbiology 04/30/21 Respiratory Virus Panel (PCR) ([facility]) - Final, Complete Discharge Medications Scheduled Cholecalciferol (Vitamin D3) (Vitamin D3) 1,000 Unit Tablet, 1,000 UNITS PO DAILY, (Reported) Ciprofloxacin HCl (Cipro) 500 Mg Tablet, 1 TAB PO BID Folic Acid/Multivit-Min/Lutein (Multi-Vitamin Gummies) 1 Each Tab.chew, 2 CHW PO DAILY, (Reported) Lisinopril (Lisinopril) 20 Mg Tablet, 20 MG PO DAILY, (Reported) Metronidazole (Flagyl) 500 Mg Tablet, 500 MG PO Q8H FOR 10 DAYS Naproxen (Naproxen) 500 Mg Tablet.dr, 500 MG PO BID, (Reported) Omeprazole (Omeprazole) 20 Mg Capsule.dr, 20 MG PO DAILY, (Reported) Scheduled PRN Ibuprofen (Ibuprofen) 200 Mg Tablet, 800 MG PO TID PRN for PAIN LEVEL 1-5, (Reported) Allergies Coded Allergies: No Known Allergies (Unverified , 12/29/19) GABY SILVEIRA MD May 02, 2021 13:11
== END 2021-05-02 14:08 | disposition home or self-care (01) | DRG 244 ==
LOC: M ED 12:46 → M ED INP 12:47 → ENRESERV 05-01 09:55 → M PCU 05-01 11:15 → OBSVTOIN 05-01 17:39
PROVIDERS: ADMIT Internal Medicine; ATTEND Internal Medicine Nephrology
DX: K57.20 Diverticulitis of large intestine with perforation and abscess without bleeding (principal); Z68.42 Body mass index [BMI] 45.0-49.9, adult; K76.0 Fatty (change of) liver, not elsewhere classified; E66.01 Morbid (severe) obesity due to excess calories; I10 Essential (primary) hypertension; E78.5 Hyperlipidemia, unspecified; F41.9 Anxiety disorder, unspecified; F32.9 Major depressive disorder, single episode, unspecified; R74.01 Elevation of levels of liver transaminase levels; Z79.1 Long term (current) use of non-steroidal anti-inflammatories (NSAID); Z79.899 Other long term (current) drug therapy

== ENCOUNTER → 2021-04-30 | Outpatient (REF) | payer OTHER ==
[~2021-04-30] MED LIST changes: +BP MED UNKNOWN; +CIPR-249 PO; +D31000TA2 PO; +FLAG500T PO; +IBUP-1720 PO; +LISI10TA22 PO; -LISI10TA4 PO; +LISI20TA33 PO; +MELO15TA28; +METF500T13; +MULTCHW12 PO; +NAPR-885; +NAPR500T6 PO; +OMEP-173 PO; -OMEP-221 PO; +OMEP40CA5 PO
[2021-04-30 13:53] LABS: APPEARANCE, URINE HAZY (CLEAR); BACTERIA, URINE AUTO NEGATIVE (NEGATIVE); BILIRUBIN, URINE AUTO 1+ (NEGATIVE); BLOOD, URINE BLOOD NEGATIVE (NEGATIVE); COLOR, URINE AMBER (YELLOW); GLUCOSE, URINE (UA) AUTO 1+ mg/dL (NEGATIVE); KETONE, URINE AUTO 2+ mg/dL (NEGATIVE); LEUKOCYTE ESTERASE, URINE AUTO NEGATIVE (NEGATIVE); MUCUS, URINE MODERATE (NEGATIVE); NITRITE, URINE AUTO NEGATIVE (NEGATIVE); PROTEIN, URINE AUTO 1+ mg/dL (NEGATIVE); RBC, URINE AUTO 0 /HPF (0-3); SPECIFIC GRAVITY URINE AUTO 1.033 (1.002-1.035); SQUAMOUS EPITHELIAL CELL UR AU 8 /HPF (0-6); WBC, URINE AUTO 1 /HPF (0-3)
== END ==
LOC: M LAB REF 13:27
PROVIDERS: ATTEND Physician Assistant Medical
DX: N39.0 Urinary tract infection, site not specified (principal)

== ENCOUNTER → 2021-06-06 | Outpatient (CLI) | payer OTHER ==
[~2021-06-06] MED LIST changes: +CIPR-249 PO; +D31000TA2 PO; +FLAG500T PO; +IBUP-1720 PO; +LISI20TA33 PO; +MULTCHW12 PO; +NAPR-885; +NAPR500T6 PO; +OMEP-218 PO
[2021-06-06 13:01] LABS: ALBUMIN 3.3 GM/DL (3.2-5.2); BILIRUBIN,DIRECT 0.1 MG/DL (0.0-0.2); BILIRUBIN,TOTAL 0.4 MG/DL (0.2-1.0); TOTAL PROTEIN 7.8 GM/DL (6.4-8.2)
== END ==
LOC: M LAB 11:32
PROVIDERS: ATTEND Internal Medicine Gastroenterology
DX: R19.7 Diarrhea, unspecified (principal)

== ENCOUNTER → 2021-07-08 | Outpatient (CLI) | payer OTHER ==
[~2021-07-08] MED LIST changes: +BP MED UNKNOWN; +MELO15TA28; +METF500T13; +OMEP-173 PO; -OMEP-218 PO; -OMEP-221 PO; +OMEP40CA5 PO
== END ==
LOC: M LABSMTC 11:17
PROVIDERS: ATTEND Anesthesiology
DX: Z01.818 Encounter for other preprocedural examination (principal); Z11.52 Encounter for screening for COVID-19

== ENCOUNTER 2021-07-12 08:03 | Day surgery (SDC) | payer OTHER ==
[~2021-07-12] VITALS: Ht 170.2 cm; Wt 134.3 kg
[~2021-07-12 08:03] MED LIST changes: -BP MED UNKNOWN; +NS 1,000 ML IV ONE; -OMEP-173 PO; +OMEP-218 PO; +OMEP-221 PO; -OMEP40CA5 PO
[2021-07-12] MEDS ORDERED: LIDOCAINE 2% 100MG/5ML SDV (FOR ANES.) As Ordered ONE (08:07)
[2021-07-12] MEDS ORDERED: propofoL 200 MG/20 ML VIAL As Ordered ONE ×2 (08:07→09:58)
[2021-07-12] MEDS ORDERED: BP MED UNKNOWN (08:38)
--- NOTE | 2021-07-12 10:11 | ROOR ---
Patient Name: Loretta Jaramillo Procedure Date: 07/12/2021 9:40 AM Date of : 1985 Age: 35 Room: [facility] Gender: Female Note Status: Finalized Procedure: Colonoscopy Indications: Follow-up of diverticulitis Providers: Oscar Polk MD Referring MD: Yamilet OMALLEY MD Requesting Provider: Medicines: Monitored Anesthesia Care Complications: No immediate complications. Procedure: Pre-Anesthesia Assessment: - Prior to the procedure, a History and Physical was performed, and patient medications and allergies were reviewed. The patient is competent. The risks and benefits of the procedure and the sedation options and risks were discussed with the patient. All questions were answered and informed consent was obtained. Patient identification and proposed procedure were verified by the physician, the nurse and the anesthesiologist in the procedure room. Mental Status Examination: alert and oriented. Airway Examination: normal oropharyngeal airway and neck mobility. Respiratory Examination: clear to auscultation. CV Examination: normal. Prophylactic Antibiotics: The patient does not require prophylactic antibiotics. Prior Anticoagulants: The patient has taken no previous anticoagulant or antiplatelet agents. ASA Grade Assessment: III - A patient with severe systemic disease. After reviewing the risks and benefits, the patient was deemed in satisfactory condition to undergo the procedure. The anesthesia plan was to use monitored anesthesia care (MAC). Immediately prior to administration of medications, the patient was re-assessed for adequacy to receive sedatives. The heart rate, respiratory rate, oxygen saturations, blood pressure, adequacy of pulmonary ventilation, and response to care were monitored throughout the procedure. The physical status of the patient was re-assessed after the procedure. The Colonoscope was introduced through the anus and advanced to the terminal ileum, with identification of the appendiceal orifice and IC valve. The colonoscopy was performed without difficulty. The patient tolerated the procedure well. The quality of the bowel preparation was good. The terminal ileum, ileocecal valve, appendiceal orifice, and rectum were photographed. Scope insertion time was 2 minutes. Scope withdrawal time was 8 minutes. The total duration of the procedure was 11 minutes. Findings: The perianal and digital rectal examinations were normal. The terminal ileum appeared normal. An area of mildly congested mucosa was found in the sigmoid colon. Biopsies for histology were taken with a cold forceps from the right colon, left colon, transverse colon and sigmoid colon for evaluation of microscopic colitis. Verification of patient identification for the specimen was done by the physician and nurse using the patient's name, date and medical record number. Estimated blood loss was minimal. Non-bleeding external and internal hemorrhoids were found during retroflexion. The hemorrhoids were medium-sized. Impression: - The examined portion of the ileum was normal. - Congested mucosa in the sigmoid colon. Biopsied. - Non-bleeding external and internal hemorrhoids. Recommendation: - Patient has a contact number available for emergencies. The signs and symptoms of potential delayed complications were discussed with the patient. Return to normal activities tomorrow. Written discharge instructions were provided to the patient. - High fiber diet. - Continue present medications. - Await pathology results. - Repeat colonoscopy at age 46 for screening purposes. - Use fiber, for example Citrucel, Fibercon, Konsyl or Metamucil. - Telephone GI clinic for pathology results in 2 weeks. - Return to GI clinic if persistent symptoms or new symptoms. - Return to primary care physician. Procedure Code(s): --- Professional --- 70022, Colonoscopy, flexible; with biopsy, single or multiple Diagnosis Code(s): --- Professional --- K64.8, Other hemorrhoids K63.89, Other specified diseases of intestine K57.32, Diverticulitis of large intestine without perforation or abscess without bleeding CPT copyright 2019 [employer]. All rights reserved. The codes documented in this report are preliminary and upon management advisor review may be revised to meet current compliance requirements. Oscar Polk MD Oscar Polk MD 07/12/2021 10:11:42 AM Electronically signed by Oscar Polk MD Number of Addenda: 0 Note Initiated On: 07/12/2021 9:40 AM Estimated Blood Loss: Estimated blood loss was minimal.
[2021-07-12 10:37] VITALS: BP 129/83
== END 2021-07-12 10:40 | disposition home or self-care (01) ==
LOC: M SDC 08:03 → M OPP 08:03 → M SDC 10:40
PROVIDERS: ATTEND Internal Medicine Gastroenterology
DX: K57.32 Diverticulitis of large intestine without perforation or abscess without bleeding (principal); K63.89 Other specified diseases of intestine; K64.8 Other hemorrhoids; I10 Essential (primary) hypertension; K21.9 Gastro-esophageal reflux disease without esophagitis; E78.00 Pure hypercholesterolemia, unspecified; E28.2 Polycystic ovarian syndrome; F41.9 Anxiety disorder, unspecified; F32.9 Major depressive disorder, single episode, unspecified; F17.210 Nicotine dependence, cigarettes, uncomplicated; Z87.19 Personal history of other diseases of the digestive system; Z79.899 Other long term (current) drug therapy; Z79.84 Long term (current) use of oral hypoglycemic drugs

== ENCOUNTER → 2022-01-21 | Outpatient (CLI) | payer OTHER ==
[~2022-01-21] MED LIST changes: +BP MED UNKNOWN; -D31000TA2 PO; -NS 1,000 ML IV ONE; +OMEP-173 PO; -OMEP-218 PO; -OMEP-221 PO; +OMEP40CA5 PO; +VITA100093 PO
[2022-01-21 14:31] LABS: HEMOGLOBIN A1c 5.9 %
== END ==
LOC: M LAB 13:25
PROVIDERS: ATTEND Surgery
DX: Z86.39 Personal history of other endocrine, nutritional and metabolic disease (principal)

== ENCOUNTER 2022-06-14 19:08 | Inpatient (IN) | payer OTHER ==
[~2022-06-14] VITALS: Ht 170.2 cm; Wt 131.3 kg
[2022-06-14] MEDS ORDERED: KETOROLAC 30 MG/ML 1ML VIAL IV ONE (21:00)
[2022-06-14 21:22] LABS: BASO # 0.1 10^3/uL (0.0-0.2); BASO % 0.6 % (0.0-1.0); EOS # 0.1 10^3/uL (0.0-0.5); EOS % 0.5 % (0.0-3.0); HEMATOCRIT 43.8 % (36.0-47.0); HEMOGLOBIN 14.6 g/dl (12.0-15.5); LYMPH # 3.1 10^3/uL (1.5-5.0); LYMPH % 24.7 % (24.0-44.0); MEAN CORPUSCULAR HEMOGLOBIN 30.5 pg (27.0-33.0); MEAN CORPUSCULAR HGB CONC 33.3 g/dl (32.0-36.5); MEAN CORPUSCULAR VOLUME 91.4 fl (80.0-96.0); MONO # 1.3 10^3/uL (0.0-0.8); MONO % 10.1 % (2.0-8.0); NEUTROPHILS # 7.9 10^3/uL (1.5-8.5); NEUTROPHILS % 63.9 % (36.0-66.0); PLATELET COUNT, AUTOMATED 264 10^3/uL (150-450); RED BLOOD COUNT 4.79 10^6/uL (4.00-5.40); WHITE BLOOD COUNT 12.4 10^3/uL (4.0-10.0)
[2022-06-14 21:34] LABS: BACTERIA, URINE SMALL AMOUNT; MUCUS, URINE LARGE AMOUNT (NEGATIVE); RBC, URINE NONE SEEN /hpf (0-3); SQUAMOUS EPITHELIAL CELL URINE LARGE AMOUNT /hpf (SMALL AMT)
[2022-06-14 21:47] LABS: HCG, SERUM QUALITATIVE NEGATIVE (NEGATIVE)
[2022-06-14 21:56] LABS: ALBUMIN 3.5 GM/DL (3.2-5.2); ALT/SGPT 209 U/L (12-78); BILIRUBIN,TOTAL 0.5 MG/DL (0.2-1.0); BLOOD UREA NITROGEN 9 MG/DL (7-18); CARBON DIOXIDE LEVEL 25 MEQ/L (21-32); CHLORIDE LEVEL 101 MEQ/L (98-107); CREATININE FOR GFR 0.76 MG/DL (0.55-1.30); GLOMERULAR FILTRATION RATE > 60.0 (>60); GLUCOSE, FASTING 106 MG/DL (70-100); LIPASE 70 U/L (73-393); POTASSIUM SERUM 4.3 MEQ/L (3.5-5.1); SODIUM LEVEL 133 MEQ/L (136-145); TOTAL PROTEIN 8.2 GM/DL (6.4-8.2)
[2022-06-14] MEDS ORDERED: PIPERACILLIN/TAZOBACTAM SOD 4.5 GM in D5W MINI-BAG PLUS 50 ML IV ONE (23:30)
[2022-06-14] MEDS ORDERED: METF10004 PO (23:33)
[2022-06-14] MEDS ORDERED: LOTR10CA PO (23:33)
[2022-06-14] MEDS ORDERED: HOME MED LIST COMPLETE! XX SCH (23:35)
[2022-06-15] MEDS ORDERED: ACETAMINOPHEN TAB 650MG DOSE (2X325MG) PO PRN (00:30)
[2022-06-15] MEDS ORDERED: MOM 30ML SUSPENSION UDC PO PRN (00:30)
[2022-06-15 01:42] VITALS: BP 143/79
[2022-06-15] MEDS: NS 1,000 ML IV SCH ×2 (03:09→09:14)
[2022-06-15] MEDS: AMPICILLIN SOD/SULBACTAM SOD 3 GM in D5W MINI-BAG PLUS 100 ML IV SCH ×4 (03:37→22:36)
[2022-06-15] MEDS: ONDANSETRON 4MG 2ML VIAL IV PRN (03:37)
[2022-06-15] MEDS ORDERED: MORPHINE 4 MG/ML 1ML VIAL/SYRINGE IV ONE (04:00)
[2022-06-15 05:44] VITALS: BP 109/66
[2022-06-15 06:12] LABS: HEMATOCRIT 39.6 % (36.0-47.0); MEAN CORPUSCULAR HEMOGLOBIN 29.9 pg (27.0-33.0); MEAN CORPUSCULAR HGB CONC 32.8 g/dl (32.0-36.5); PLATELET COUNT, AUTOMATED 216 10^3/uL (150-450); RED BLOOD COUNT 4.35 10^6/uL (4.00-5.40); WHITE BLOOD COUNT 9.2 10^3/uL (4.0-10.0)
[2022-06-15 06:59] LABS: ALBUMIN 2.9 GM/DL (3.2-5.2); ALT/SGPT 139 U/L (12-78); BILIRUBIN,TOTAL 0.6 MG/DL (0.2-1.0); BLOOD UREA NITROGEN 9 MG/DL (7-18); CALCIUM LEVEL 8.4 MG/DL (8.5-10.1); CARBON DIOXIDE LEVEL 26 MEQ/L (21-32); CHLORIDE LEVEL 102 MEQ/L (98-107); CREATININE FOR GFR 0.63 MG/DL (0.55-1.30); GLOMERULAR FILTRATION RATE > 60.0 (>60); GLUCOSE, FASTING 118 MG/DL (70-100); POTASSIUM SERUM 3.4 MEQ/L (3.5-5.1); SODIUM LEVEL 134 MEQ/L (136-145); TOTAL PROTEIN 6.5 GM/DL (6.4-8.2)
[2022-06-15] MEDS ORDERED: MORPHINE 2 MG/ML 1ML VIAL IV PRN (07:00)
[2022-06-15] MEDS ORDERED: POTASSIUM CHLORIDE 10MEQ SR TABLET PO ONE (08:05)
[2022-06-15] MEDS: KETOROLAC 30 MG/ML 1ML VIAL IV PRN ×2 (08:37→21:16)
[2022-06-15] MEDS: DOCUSATE SODIUM 100MG CAPSULE PO SCH ×2 (09:13→21:16)
[2022-06-15] MEDS: ENOXAPARIN 40MG/0.4ML SYRINGE (J1650 PER 10MG) SC SCH (09:14)
[2022-06-15] MEDS ORDERED: MORPHINE 4 MG/ML 1ML VIAL/SYRINGE IV PRN (11:15)
[2022-06-15 14:00] VITALS: BP 139/98
[2022-06-15 22:00] VITALS: BP 105/76
[2022-06-16] MEDS: AMPICILLIN SOD/SULBACTAM SOD 3 GM in D5W MINI-BAG PLUS 100 ML IV SCH ×2 (04:40→09:39)
[2022-06-16 06:00] VITALS: BP 110/75
[2022-06-16 06:12] LABS: BASO # 0.1 10^3/uL (0.0-0.2); BASO % 0.9 % (0.0-1.0); EOS # 0.2 10^3/uL (0.0-0.5); EOS % 3.3 % (0.0-3.0); HEMATOCRIT 38.9 % (36.0-47.0); HEMOGLOBIN 12.3 g/dl (12.0-15.5); LYMPH # 2.4 10^3/uL (1.5-5.0); LYMPH % 36.5 % (24.0-44.0); MEAN CORPUSCULAR HEMOGLOBIN 29.7 pg (27.0-33.0); MEAN CORPUSCULAR HGB CONC 31.6 g/dl (32.0-36.5); MONO # 0.6 10^3/uL (0.0-0.8); MONO % 9.4 % (2.0-8.0); NEUTROPHILS # 3.2 10^3/uL (1.5-8.5); NEUTROPHILS % 49.7 % (36.0-66.0); PLATELET COUNT, AUTOMATED 220 10^3/uL (150-450); RED BLOOD COUNT 4.14 10^6/uL (4.00-5.40); WHITE BLOOD COUNT 6.5 10^3/uL (4.0-10.0)
[2022-06-16 06:54] LABS: BLOOD UREA NITROGEN 4 MG/DL (7-18); CALCIUM LEVEL 8.2 MG/DL (8.5-10.1); CARBON DIOXIDE LEVEL 29 MEQ/L (21-32); CHLORIDE LEVEL 105 MEQ/L (98-107); CREATININE FOR GFR 0.52 MG/DL (0.55-1.30); GLOMERULAR FILTRATION RATE > 60.0 (>60); GLUCOSE, FASTING 142 MG/DL (70-100); POTASSIUM SERUM 4.2 MEQ/L (3.5-5.1); SODIUM LEVEL 138 MEQ/L (136-145)
[2022-06-16] MEDS: ONDANSETRON 4MG 2ML VIAL IV PRN (09:39)
[2022-06-16] MEDS: ENOXAPARIN 40MG/0.4ML SYRINGE (J1650 PER 10MG) SC SCH (09:40)
[2022-06-16] MEDS: DOCUSATE SODIUM 100MG CAPSULE PO SCH (09:40)
[2022-06-16] MEDS ORDERED: CEFD300CAP PO (13:53)
[2022-06-16] MEDS ORDERED: METR-265 PO (13:53)
== END 2022-06-16 15:07 | disposition home or self-care (01) | DRG 244 ==
LOC: M ED 19:08 → M ED INP 23:33 → ENRESERV 06-15 00:55 → M MSPAV 06-15 01:18
PROVIDERS: ADMIT Family Medicine; ATTEND Internal Medicine Nephrology
DX: K57.32 Diverticulitis of large intestine without perforation or abscess without bleeding (principal); Z68.42 Body mass index [BMI] 45.0-49.9, adult; K76.0 Fatty (change of) liver, not elsewhere classified; E66.01 Morbid (severe) obesity due to excess calories; I10 Essential (primary) hypertension; E78.5 Hyperlipidemia, unspecified; K21.9 Gastro-esophageal reflux disease without esophagitis; F41.9 Anxiety disorder, unspecified; F32.A Depression, unspecified; R73.03 Prediabetes; F17.290 Nicotine dependence, other tobacco product, uncomplicated; K64.4 Residual hemorrhoidal skin tags; K64.8 Other hemorrhoids; Z79.84 Long term (current) use of oral hypoglycemic drugs; Z79.899 Other long term (current) drug therapy

== ENCOUNTER → 2022-08-22 | Outpatient (REF) | payer OTHER ==
[~2022-08-22] MED LIST changes: +CEFD300CAP PO; +LOTR10CA PO; +METR-265 PO
[2022-08-22 18:19] LABS: ALBUMIN 3.3 GM/DL (3.2-5.2); ALT/SGPT 117 U/L (12-78); BILIRUBIN,TOTAL 0.3 MG/DL (0.2-1.0); BLOOD UREA NITROGEN 8 MG/DL (7-18); CALCIUM LEVEL 9.7 MG/DL (8.5-10.1); CARBON DIOXIDE LEVEL 26 MEQ/L (21-32); CHLORIDE LEVEL 104 MEQ/L (98-107); CREATININE FOR GFR 0.59 MG/DL (0.55-1.30); GLOMERULAR FILTRATION RATE > 60.0 (>60); GLUCOSE, FASTING 106 MG/DL (70-100); POTASSIUM SERUM 4.7 MEQ/L (3.5-5.1); SODIUM LEVEL 137 MEQ/L (136-145); TOTAL PROTEIN 7.8 GM/DL (6.4-8.2)
[2022-08-22 18:59] LABS: HEMOGLOBIN A1c 5.9 %
== END ==
LOC: M LAB REF 16:43
PROVIDERS: ATTEND Pediatrics
DX: R73.03 Prediabetes (principal); K21.9 Gastro-esophageal reflux disease without esophagitis

== ENCOUNTER → 2023-09-03 | Outpatient (REF) | payer OTHER, MEDICARE ==
[2023-09-03 18:36] LABS: HEMOGLOBIN A1c 6.6 % (4.0-6.0)
[2023-09-03 19:14] LABS: HIV 1&2 SCREEN NEGATIVE (NEGATIVE)
[2023-09-03 19:22] LABS: HEPATITIS B CORE ANTIBODY IGM NEGATIVE (NEGATIVE); HEPATITIS C VIRUS ABY INDEX 0.05 INDEX (<0.8)
[2023-09-04 12:50] LABS: CHLAMYDIA DNA AMPLIFICATION NEGATIVE (NEGATIVE); GC DNA AMPLIFICATION NEGATIVE (NEGATIVE)
== END ==
LOC: M SFHCWAGY 17:43
PROVIDERS: ATTEND Nurse Practitioner Family
DX: Z11.3 Encounter for screening for infections with a predominantly sexual mode of transmission (principal); E28.2 Polycystic ovarian syndrome; N91.1 Secondary amenorrhea

== ENCOUNTER → 2023-09-24 | Outpatient (CLI) | payer OTHER | LOC: M WHC 13:48 | PROVIDERS: ATTEND Nurse Practitioner Family | DX: E28.2 Polycystic ovarian syndrome (principal) ==

== ENCOUNTER 2024-05-11 22:59 | Emergency (ER) | payer MEDICARE, OTHER ==
[~2024-05-11] VITALS: Ht 170.2 cm; Wt 125.5 kg
[~2024-05-11 22:59] MED LIST changes: +FLUO-365 PO; -FLUO20CA22 PO
[2024-05-12] MEDS ORDERED: ONDANSETRON 4MG 2ML VIAL As Ordered ONE (00:31)
[2024-05-12] MEDS: BOOSTRIX VACCINE (TETANUS/DIPHTH/ACEL. PERTUSSIS) 0.5ML SYR IM.IMMUN ONE (00:33)
[2024-05-12] MEDS: MORPHINE 4 MG/ML 1ML VIAL IV ONE ×3 (00:34→10:42)
[2024-05-12] MEDS: NS 1,000 ML IV ONE (00:34)
[2024-05-12] MEDS ORDERED: POLYSPORIN TOPICAL OINTMENT 15GM As Ordered ONE (01:28)
[2024-05-12] MEDS ORDERED: LEXA5TAB13 PO (08:39)
[2024-05-12] MEDS ORDERED: METF-838 PO (08:39)
[2024-05-12] MEDS ORDERED: CVS1CAP2 PO (08:39)
[2024-05-12] MEDS ORDERED: HOME MED LIST COMPLETE! XX SCH (08:50)
[2024-05-12 10:33] VITALS: BP 183/114; TEMP 97.5; O2SAT 99
== END 2024-05-12 10:46 | disposition short-term general hospital (02) ==
LOC: M ED 22:59
DX: T24.222A Burn of second degree of left knee, initial encounter (principal); T22.232A Burn of second degree of left upper arm, initial encounter; T21.12XA Burn of first degree of abdominal wall, initial encounter; T21.11XA Burn of first degree of chest wall, initial encounter; X19.XXXA Contact with other heat and hot substances, initial encounter; Y92.410 Unspecified street and highway as the place of occurrence of the external cause; Y93.89 Activity, other specified; Y99.8 Other external cause status; E11.9 Type 2 diabetes mellitus without complications; F32.A Depression, unspecified